=== PATIENT | female | born 1970 | race Caucasian/White ===

== ENCOUNTER 2018-03-27 12:31 | Emergency (ER) | payer OTHER, BC ==
[2018-03-27 13:06] VITALS: BP 122/84
--- NOTE | 2018-03-27 14:11 | EDM.PDOC ---
ED HPI GENERAL MEDICAL PROBLEM - General Chief Complaint: Eye Problems Stated Complaint: EYE PAIN Time Seen by Provider: 03/27/18 12:50 Source of Information: Reports: Patient History Limitations: Reports: No Limitations - History of Present Illness INITIAL COMMENTS - FREE TEXT/NARRATIVE: Pt is employee at [employer]. Pt was at work today And was wearing protective eye wears.. She claims that one of the Enema bottle tip twisted off and there was powdered plastic that went up in the air and the particles fell into her right eye. Pt did rub the right eye. She did clean the eye by eye washing with normal saline for 4-5 minutes. She is here as she continues to have right eye itching. No tearing form the eyes. No redness. No blurry vision or vision changes. No other c/o or trauma. 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: eye flushed with normal saline - Related Data Home Meds: Home Meds Gabapentin [Neurontin] 100 mg PO BEDTIME 03/27/18 [History] Venlafaxine [Effexor XR] 75 mg PO DAILY 03/27/18 [History] Past Medical History HEENT History: Reports: Impaired Vision, Other (See Below) Other HEENT History: glasses Psychiatric History: Reports: Anxiety, Depression ED ROS GENERAL - Review of Systems Review Of Systems: See Below Constitutional: Denies: Fever, Chills, Malaise HEENT: Denies: Ear Discharge, Eye Pain, Rhinitis, Throat Pain, Throat Swelling, Vision Change Respiratory: Denies: Cough, Sputum Cardiovascular: Denies: Chest Pain, Lightheadedness GI/Abdominal: Denies: Abdominal Pain, Nausea, Vomiting : Denies: Flank Pain, Frequency Musculoskeletal: Denies: Joint Pain, Joint Swelling Skin: Denies: Bruising, Pruritis, Rash Neurological: Denies: Confusion, Dizziness, Headache, Syncope ED EXAM GENERAL W FULL EYE - Physical Exam Exam: See Below Exam Limited By: No Limitations General Appearance: Alert, WD/WN, No Apparent Distress Eye Exam: Bilateral Eye: EOMI, PERRL Visual Acuity (R) 20/: 20 Visual Acuity (L) 20/: 20 Eyelids: Bilateral: Normal Appearance Conjunctiva & Sclera: Left: Normal Appearance (right lower palpebral conjunctiva is injected) Cornea Exam: Bilateral: Normal Appearance Extraocular Movements: Bilateral: Intact Pupils: Normal Accommodation Pupillary Size: Bilateral: 2 mm Pupillary Reaction: Bilateral: Brisk Anterior Chamber: Bilateral: Normal Appearance Posterior Chamber: Bilateral: Normal Funduscopic Ears: Normal External Exam, Normal Canal, Hearing Grossly Normal, Normal TMs Nose: Normal Inspection, Normal Mucosa, No Blood Throat/Mouth: Normal Inspection, Normal Lips, Normal Teeth, Normal Gums, Normal Oropharynx, Normal Voice, No Airway Compromise Head: Atraumatic, Normocephalic Neck: Normal Inspection, Supple, Non-Tender, Full Range of Motion Respiratory/Chest: No Respiratory Distress, Lungs Clear, Normal Breath Sounds, No Accessory Muscle Use, Chest Non-Tender Cardiovascular: Normal Peripheral Pulses, Regular Rate, Rhythm, No Edema, No Gallop, No JVD, No Murmur, No Rub Course - Vital Signs Text/Narrative:: Pt's eye exam is normal. She has very mild lnjection of the right lower palpebral conjunctiva. Probably from rubbing the eye. No corneal injuries seen on fluoro exam. P reassured. Advised not to rub the eyes. Empirically started her on Cipro eye drops 2 drops TID to right eye. Return if there is any acute visual disturbances. Other chaparro continue cipro 5 days. Pt should be okay to return to work. Last Recorded V/S: Last Vital Signs Temp 100 F 03/27/18 12:35 Pulse 102 H 03/27/18 12:35 Resp BP 122/84 03/27/18 12:35 Pulse Ox 100 03/27/18 12:35 Departure - Departure Time of Disposition: 13:30 Disposition: Home, Self-Care 01 Condition: Fair Clinical Impression: Conjunctivitis - Discharge Information Instructions: Ciprofloxacin eye solution, Eye Foreign Body, [id number] Referrals: Mireya Mccallum STUDENT SERVICES COORDINATOR [Primary Care Provider] - Forms: ED Department Discharge Additional Instructions: please try NOT to rub your eyes. use the heal of your hand as the dr ordered. - Problem List & Annotations (1) Conjunctivitis SNOMED Code(s): 8060720 Code(s): H10.9 - UNSPECIFIED CONJUNCTIVITIS Status: Acute Current Visit: Yes - Problem List Review Problem List Initiated/Reviewed/Updated: Yes - Assessment/Plan Assessment:: Right eye irritant conjunctival injection. Plan: Pt's eye exam is normal. She has very mild lnjection of the right lower palpebral conjunctiva. Probably from rubbing the eye. No corneal injuries seen on fluoro exam. P reassured. Advised not to rub the eyes. Empirically started her on Cipro eye drops 2 drops TID to right eye. Return if there is any acute visual disturbances. Other chaparro continue cipro 5 days. Pt should be okay to return to work. followup in clinic if symptoms worsen ANNI.
== END 2018-03-27 13:23 | disposition home or self-care (01) ==
LOC: LB.ED 12:31
DX: H10.9 Unspecified conjunctivitis (principal); F32.9 Major depressive disorder, single episode, unspecified; F41.9 Anxiety disorder, unspecified; Z79.899 Other long term (current) drug therapy
CPT/HCPCS: 99283

== ENCOUNTER 2018-04-13 16:27 | Emergency (ER) | payer BC, OTHER ==
[2018-04-13] MEDS ORDERED: Amoxicillin 500 MG Cap ONE (17:00)
[2018-04-13] MEDS ORDERED: Lidocaine 2% with EPINEPHrine 1:100,000 20 ML MDV INJECT ONE (17:10)
[2018-04-13] MEDS ORDERED: Mupirocin Oint 22 GM Tube TOP ONE (17:43)
[2018-04-13] MEDS ORDERED: Diphtheria,Pertussis(Acell),Tetanus Vaccine 0.5 ML SDV inactive IM ONE (17:50)
--- NOTE | 2018-04-13 20:29 | EDM.PDOC ---
ED HPI GENERAL MEDICAL PROBLEM - General Chief Complaint: Skin Complaint Stated Complaint: FISH HOOK PUNCTURE Time Seen by Provider: 04/13/18 16:35 Source of Information: Reports: Patient History Limitations: Reports: No Limitations - History of Present Illness INITIAL COMMENTS - FREE TEXT/NARRATIVE: According to patient she was in the garage trying to find a fish gayla and she accidental fell on a plastic fishing gayla and the gayla broke and puncture her right posterior thigh. Pt did put some pressure and came into emergency room. Pt thinks there is a piece of plastic in embedded in her thigh. No difficulty with walking. No swelling of the right thigh. Does c/o pain 4/10. No tingling or numbness. Pt is not sure of her tetanus shot. 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: Neurological History: Reports: Other (See Below) Other Neuro History: nerve pain to legs Psychiatric History: Reports: Anxiety, Depression - Past Surgical History Female Surgical History: Reports: Tubal Ligation Social & Family History - Tobacco Use Smoking Status *Q: Current Every Day Smoker Years of Tobacco use: 17 Packs/Tins Daily: 0.5 - Recreational Drug Use Recreational Drug Use: No ED ROS GENERAL - Review of Systems Review Of Systems: See Below Constitutional: Denies: Fever HEENT: Denies: Rhinitis, Throat Pain Respiratory: Denies: Cough, Sputum Cardiovascular: Denies: Chest Pain, Lightheadedness GI/Abdominal: Denies: Abdominal Pain, Nausea, Vomiting : Denies: Frequency, Urgency Musculoskeletal: Denies: Joint Pain, Joint Swelling Skin: Reports: Bruising, Erythema. Denies: Pruritis, Rash ED EXAM, SKIN/RASH Exam: See Below Exam Limited By: No Limitations General Appearance: Alert, WD/WN, No Apparent Distress Eye Exam: Bilateral Eye: EOMI, PERRL Ears: Normal External Exam, Normal Canal, Hearing Grossly Normal, Normal TMs Nose: Normal Inspection, Normal Mucosa, No Blood Throat/Mouth: Normal Inspection, Normal Lips, Normal Teeth, Normal Gums, Normal Oropharynx, Normal Voice, No Airway Compromise Head: Atraumatic, Normocephalic Neck: Normal Inspection, Supple, Non-Tender, Full Range of Motion Respiratory/Chest: No Respiratory Distress, Lungs Clear, Normal Breath Sounds, No Accessory Muscle Use, Chest Non-Tender Cardiovascular: Normal Peripheral Pulses, Regular Rate, Rhythm, No Edema, No Gallop, No JVD, No Murmur, No Rub Extremities: Normal Inspection, Normal Range of Motion, Non-Tender, No Pedal Edema, Normal Capillary Refill Neurological: Alert, Oriented, Normal Cognition, Normal Gait Skin: Warm, Intact, Other (right thigh: ther eis a 2cm avulsed skin wound over the psoterior upper thigh. Length of the wound is apporximately 2 cm The dept on probing the wound is about 2 cm. into subcuatenous tissue laterally. No soft tissue swelling.There is no active bleeding. ) ED SKIN PROCEDURES - Laceration/Wound Repair Right Thigh Lac/Wound length In cm: 2 Appearance: Subcutaneous Distal NVT: Neuro & Vascular Intact, No Tendon Injury Local Anesthesia - Lidocaine (Xylocaine): 1% with EPI Local Anesthetic Volume: 3cc Skin Prep: Providone-Iodine (Betadine) Saline Irrigation (cc's): 50 Exploration/Debridement/Repair: Wound Explored, Other (the skin flap wa removed with lancinate incision around it to creat a long linear laceration. ) Closed with: Sutures Suture Size: 4-0 # of Sutures: 7 Suture Size: other # of Sutures: 5 Repaired with: Vicryl Sterile Dressing Applied: Provider Tetanus Status Addressed: Yes Complications: No Course - Vital Signs Text/Narrative:: Pt reassured, he wound has a superficial skin flap, which was excised and a linear laceration created. The wound deep is about 2 cm, but is in the subcutaneous plane. The wound irrigated. Wound closed in layers. Sterile dressing done. As the fish gayla is contaminated and wound is puncture wound, pt was started on Amox 500mg 3 times daily for 1 wk. Infection precautions discussed. She did receive tetanus today. Suture removal in 10 days.Followup in clinic for recheck. Last Recorded V/S: Last Vital Signs Temp 99.1 F 04/13/18 16:40 Pulse 119 H 04/13/18 16:40 Resp 16 04/13/18 16:40 BP 102/75 04/13/18 16:40 Pulse Ox 98 04/13/18 16:40 - Orders/Labs/Meds Orders: Active Orders 24 hr Category Date Time Status Vaccines to be Administered [RC] PER UNIT ROUTINE Care 04/13/18 17:51 Active Meds: Medications Discontinued Medications Generic Name Dose Route Start Last Admin Trade Name Rosita PRN Reason Stop Dose Admin Diphtheria/Tetanus/Acell Pertussis 0.5 ml 04/13/18 17:50 04/13/18 17:53 Boostrix IM 04/13/18 17:51 0.5 ml .ONCE ONE Administration Lidocaine/Epinephrine 20 ml 04/13/18 17:10 04/13/18 17:10 Xylocaine 2% With Epinephrine 1:100,000 INJECT 04/13/18 17:11 20 ml ONETIME ONE Administration Mupirocin 1 gm 04/13/18 17:43 04/13/18 17:43 Bactroban Oint TOP 04/13/18 17:44 1 applic ONETIME ONE Administration Departure - Departure Time of Disposition: 17:30 Disposition: Home, Self-Care 01 Condition: Fair Clinical Impression: Laceration of thigh - Discharge Information Instructions: Amoxicillin capsules or tablets, Laceration Care, Adult, Stitches , Dano, or Adhesive Wound Closure Referrals: PCP,None [Primary Care Provider] - Forms: ED Department Discharge Additional Instructions: Take Amoxicillin 1 capsule three times a day for 7 days. Total of 21 doses. Will have 9 pills left over that you can discard. Have stitches removed in 10 days. Make appointment at the clinic- [phone] Do not wet the wound for 2 days, then you may shower. Leave dressing in place for 2 days. Then you may remove, place antibiotic ointment on it and cover with band aid. Do not scrub the wound-let water run on it and pat dry. No not exercise, squat, or jump until sutures are out. When you get home, take a small pillow and sit on it for a couple of hours to prevent any bleeding. May take Motrin 600mg three times a day as needed for pain. - Problem List & Annotations (1) Laceration of thigh SNOMED Code(s): 943862145 Code(s): S71.119A - LACERATION WITHOUT FOREIGN BODY, UNSP THIGH, INIT ENCNTR Status: Acute - Problem List Review Problem List Initiated/Reviewed/Updated: Yes - My Orders Last 24 Hours: My Active Orders 04/13/18 17:51 Vaccines to be Administered [RC] PER UNIT ROUTINE - Assessment/Plan Last 24 Hours: My Active Orders 04/13/18 17:51 Vaccines to be Administered [RC] PER UNIT ROUTINE Assessment:: Laceration of thigh Plan: Pt reassured, he wound has a superficial skin flap, which was excised and a linear laceration created. The wound deep is about 2 cm, but is in the subcutaneous plane. The wound irrigated. Wound closed in layers. Sterile dressing done. As the fish gayla is contaminated and wound is puncture wound, pt was started on Amox 500mg 3 times daily for 1 wk. Infection precautions discussed. She did receive tetanus today. Suture removal in 10 days.Followup in clinic for recheck.
== END 2018-04-13 18:03 | disposition home or self-care (01) ==
LOC: LB.ED 16:27
DX: S71.111A Laceration without foreign body, right thigh, initial encounter (principal); F17.210 Nicotine dependence, cigarettes, uncomplicated; Z23 Encounter for immunization; F41.9 Anxiety disorder, unspecified; F32.9 Major depressive disorder, single episode, unspecified; Z79.899 Other long term (current) drug therapy; W45.8XXA Other foreign body or object entering through skin, initial encounter
CPT/HCPCS: 12031; 90471; 90715; 99283; A9270

== ENCOUNTER 2023-07-22 09:02 | Emergency (ER) | payer OTHER ==
[2023-07-22] MEDS ORDERED: Lidocaine 1% PF 2 ML SDV INJECT ONE (09:20)
[2023-07-22] MEDS ORDERED: Lidocaine 1% 30 ML SDV INFILT ONE (10:37)
== END 2023-07-22 09:53 | disposition home or self-care (01) ==
LOC: LB.ED 09:02
DX: S61.212A Laceration without foreign body of right middle finger without damage to nail, initial encounter (principal); Z88.5 Allergy status to narcotic agent; W26.9XXA Contact with unspecified sharp object(s), initial encounter
CPT/HCPCS: 12001; 99282

== ENCOUNTER 2024-07-27 11:58 | Emergency (ER) | payer OTHER ==
[2024-07-27 13:36] LABS: HEMATOCRIT 41.3 % (37.0-47.0); HEMOGLOBIN 14.2 g/dL (11.5-16.5); MEAN CORPUSCULAR HEMOGLOBIN 31.3 pg (27.0-32.0); MEAN CORPUSCULAR HGB CONC 34.4 g/dL (31.0-35.0); MEAN PLATELET VOLUME 9.4 fL (6.0-10.0); RED BLOOD CELL COUNT 4.54 M/uL (3.80-5.80); RED CELL DISTRIBUTION WIDTH 13.3 % (11.0-16.0); WHITE BLOOD CELL COUNT,WBC 8.3 K/uL (4.0-11.0)
[2024-07-27 13:56] LABS: ALBUMIN 3.4 g/dL (3.4-5.0); ANION GAP 10.7 mmol/L (5.0-15.0); BILIRUBIN TOTAL 0.5 mg/dL (0.0-1.0); BUN/CREATININE RATIO 11.8 (6-25); CALCIUM 8.7 mg/dL (8.5-10.1); CARBON DIOXIDE,CO2 28.5 mmol/L (21.0-32.0); CREATININE 0.76 mg/dL (0.55-1.02); EST CRCL DRUG DOSING (CG) 87.35 mL/min; POTASSIUM,K 4.2 mmol/L (3.5-5.1); PROTEIN TOTAL,TP 6.9 g/dL (6.4-8.2)
[2024-07-27] MEDS ORDERED: Sodium Chloride 0.9% 1,000 ML IV SCH (14:30)
== END 2024-07-27 14:50 | disposition home or self-care (01) ==
LOC: LB.ED 11:58
DX: H10.31 Unspecified acute conjunctivitis, right eye (principal); Z79.899 Other long term (current) drug therapy; Z88.5 Allergy status to narcotic agent
CPT/HCPCS: 36415; 70450; 80053; 82947; 85027; 99284

== ENCOUNTER 2024-10-19 09:25 | Emergency (ER) | payer OTHER ==
[2024-10-19] MEDS ORDERED: Sodium Chloride 0.9% 10 ML Syringe FLUSH PRN (09:50)
[2024-10-19 09:58] LABS: BASOPHILS ABSOLUTE AUTO 0.04 K/uL (0.02-0.10); BASOPHILS PERCENT AUTO 0.5 % (0.0-0.5); EOSINOPHILS ABSOLUTE AUTO 0.07 K/uL (0.04-0.40); EOSINOPHILS PERCENT AUTO 0.8 % (1.0-5.0); HEMOGLOBIN 13.4 g/dL (11.5-16.5); LYMPHOCYTES PERCENT AUTO 27.1 % (20.0-40.0); MEAN CORPUSCULAR HEMOGLOBIN 31.4 pg (27.0-32.0); MEAN CORPUSCULAR HGB CONC 34.4 g/dL (31.0-35.0); MEAN CORPUSCULAR VOLUME 91 fL (76-96); MEAN PLATELET VOLUME 9.5 fL (6.0-10.0); MONOCYTES ABSOLUTE AUTO 0.44 K/uL (0.20-0.80); MONOCYTES PERCENT AUTO 5.2 % (3.0-10.0); NEUTROPHILS ABSOLUTE AUTO 5.65 K/uL (2.00-7.50); NEUTROPHILS PERCENT AUTO 66.4 % (45.0-70.0); PLATELET COUNT,PLT 214 K/uL (150-500); RED BLOOD CELL COUNT 4.27 M/uL (3.80-5.80); RED CELL DISTRIBUTION WIDTH 12.4 % (11.0-16.0); WHITE BLOOD CELL COUNT,WBC 8.5 K/uL (4.0-11.0)
[2024-10-19 10:18] LABS: PTT,PARTIAL THROMBOPLSTIN TIME 22.4 SECONDS (24.4-33.2)
[2024-10-19 10:19] LABS: ALBUMIN 3.5 g/dL (3.4-5.0); ANION GAP 9.2 mmol/L (5.0-15.0); BILIRUBIN TOTAL 0.5 mg/dL (0.0-1.0); BUN/CREATININE RATIO 14.8 (6-25); CALCIUM 8.9 mg/dL (8.5-10.1); CARBON DIOXIDE,CO2 29.4 mmol/L (21.0-32.0); CREATININE 0.81 mg/dL (0.55-1.02); EST CRCL DRUG DOSING (CG) 81.03 mL/min; POTASSIUM,K 3.6 mmol/L (3.5-5.1); PROTEIN TOTAL,TP 6.9 g/dL (6.4-8.2)
[2024-10-19 10:21] LABS: PROTHROMBIN TIME 10.7 sec (9.0-11.5)
[2024-10-19] MEDS: Iopamidol 755 Mg/ML 100 ML Bottle IV SCH (11:19)
[2024-10-19] MEDS: Sodium Chloride 0.9% 50 ML SDV FLUSH ONE (11:20)
== END 2024-10-19 13:12 | disposition home or self-care (01) ==
LOC: LB.ED 09:25
DX: R55 Syncope and collapse (principal); R20.2 Paresthesia of skin; G43.909 Migraine, unspecified, not intractable, without status migrainosus; F17.210 Nicotine dependence, cigarettes, uncomplicated; Z79.899 Other long term (current) drug therapy; Z88.5 Allergy status to narcotic agent
CPT/HCPCS: 36415; 70450; 70496; 70498; 72125; 80053; 84484; 85025; 85610; 85730; 93005; 99285; J3490; Q9967; 93010; 99284

== ENCOUNTER 2025-07-06 13:56 | Emergency (ER) | payer OTHER ==
[2025-07-06] MEDS ORDERED: Sodium Chloride 0.9% 10 ML Syringe FLUSH PRN (14:12)
[2025-07-06 14:30] LABS: MEAN PLATELET VOLUME 9.6 fL (6.0-10.0); PLATELET COUNT,PLT 240.0 K/uL (150-500); RED BLOOD CELL COUNT 4.41 M/uL (3.80-5.80); RED CELL DISTRIBUTION WIDTH 12.8 % (11.0-16.0); WHITE BLOOD CELL COUNT,WBC 11.1 K/uL (4.0-11.0)
[2025-07-06 15:19] LABS: BLOOD UREA NITROGEN,BUN 14.0 mg/dL (8-26); CARBON DIOXIDE,CO2 30.8 mmol/L (21.0-32.0); CHLORIDE,CL 103.0 mmol/L (98-107); CREATININE 0.82 mg/dL (0.55-1.02); EST CRCL DRUG DOSING (CG) 80.04 mL/min; ESTIMATED GFR 85.0 mL/min (>60); GLUCOSE RANDOM 95.0 mg/dL (74-100); PHOSPHORUS 3.7 mg/dL (2.5-4.9); POTASSIUM,K 4.0 mmol/L (3.5-5.1); SODIUM,NA 135.0 mmol/L (136-145)
[2025-07-06 16:37] LABS: APPEARANCE,URINE CLEAR (CLEAR); GLUCOSE,URINE NEGATIVE (NEGATIVE); OCCULT BLOOD,URINE NEGATIVE (NEGATIVE)
== END 2025-07-06 17:00 | disposition home or self-care (01) ==
LOC: LB.ED 13:56
DX: E86.0 Dehydration (principal); Z79.899 Other long term (current) drug therapy; Z88.5 Allergy status to narcotic agent
CPT/HCPCS: 36415; 80048; 81003; 83735; 84100; 84443; 85027; 93005; 96360; 96361; 99284; J7030

== ENCOUNTER 2025-09-28 09:44 | Emergency (ER) | payer OTHER ==
[2025-09-28 11:14] LABS: BASOPHILS ABSOLUTE AUTO 0.05 K/uL (0.02-0.10); BASOPHILS PERCENT AUTO 0.6 % (0.0-0.5); EOSINOPHILS ABSOLUTE AUTO 0.14 K/uL (0.04-0.40); EOSINOPHILS PERCENT AUTO 1.6 % (1.0-5.0); LYMPHOCYTES ABSOLUTE AUTO 2.33 K/uL (1.50-4.00); LYMPHOCYTES PERCENT AUTO 27.2 % (20.0-40.0); MEAN PLATELET VOLUME 9.5 fL (6.0-10.0); MONOCYTES ABSOLUTE AUTO 0.42 K/uL (0.20-0.80); MONOCYTES PERCENT AUTO 4.9 % (3.0-10.0); NEUTROPHILS ABSOLUTE AUTO 5.62 K/uL (2.00-7.50); NEUTROPHILS PERCENT AUTO 65.7 % (45.0-70.0); PLATELET COUNT,PLT 252 K/uL (150-500); RED BLOOD CELL COUNT 4.47 M/uL (3.80-5.80); RED CELL DISTRIBUTION WIDTH 12.6 % (11.0-16.0); WHITE BLOOD CELL COUNT,WBC 8.6 K/uL (4.0-11.0)
[2025-09-28 11:37] LABS: A/G RATIO 1.1 (0.8-2.0); ALANINE AMINOTRANSFERASE,ALT 14 U/L (12-78); ASPARTATE AMNIOTRANSFERASE,AST 10 U/L (15-37); BILIRUBIN TOTAL 0.7 mg/dL (0.0-1.0); BLOOD UREA NITROGEN,BUN 14 mg/dL (8-26); CARBON DIOXIDE,CO2 29.6 mmol/L (21.0-32.0); CREATININE 0.71 mg/dL (0.55-1.02); EST CRCL DRUG DOSING (CG) 92.44 mL/min; ESTIMATED GFR 102 mL/min (>60); GLUCOSE RANDOM 99 mg/dL (74-100); PROTEIN TOTAL,TP 7.2 g/dL (6.4-8.2)
[2025-09-28 11:59] LABS: APPEARANCE,URINE CLEAR (CLEAR); GLUCOSE,URINE NEGATIVE (NEGATIVE)
[2025-09-28 12:00] LABS: OCCULT BLOOD,URINE NEGATIVE (NEGATIVE)
[2025-09-28 12:09] LABS: CHLORIDE,CL 102 mmol/L (98-107); POTASSIUM,K 4.1 mmol/L (3.5-5.1); SODIUM,NA 138 mmol/L (136-145)
== END 2025-09-28 12:48 | disposition home or self-care (01) ==
LOC: LB.ED 09:44
DX: N89.8 Other specified noninflammatory disorders of vagina (principal); I10 Essential (primary) hypertension; F17.200 Nicotine dependence, unspecified, uncomplicated; Z79.899 Other long term (current) drug therapy; Z88.5 Allergy status to narcotic agent
CPT/HCPCS: 36415; 80053; 81003; 85025; 86140; 96372; 99283; 99284; J0696